=== PATIENT | female | born 1960 | race Caucasian/White ===

== ENCOUNTER 2017-01-29 17:59 | Emergency (ER) | payer OTHER ==
[~2017-01-29] VITALS: Ht 168.9 cm; Wt 127.3 kg
[~2017-01-29 17:59] MED LIST: CYCL10TA9 PO; ESTR1TAB24 PO; HYDR25TA4 PO; LEVO137T2 PO; LIP40 PO; LISI-567 PO; PREG225C PO
[2017-01-29 18:02] VITALS: BP 155/82; PULSE 84; RESP 16; O2SAT 96
[2017-01-29 18:54] LABS: BASOPHILS % (AUTO) 0.5 % (0-3); EOSINOPHILS % (AUTO) 2.7 % (0-5); MONOCYTES % (AUTO) 8.5 % (4-12); Mean Corpuscular Hemoglobin 30.8 pg (27.0-35.0); Mean Corpuscular Volume 91.8 fL (81-100); Platelet Count 278 bil/L (150-400)
--- NOTE | 2017-01-29 19:13 | DRSVH ---
PROCEDURE: X-RAY CHEST ONE VIEW, PORTABLE ([id number]) INDICATIONS: 56 year-old female with dyspnea for 6 months. TECHNIQUE: One view of the chest was acquired. COMPARISON: None. FINDINGS: Surgical changes and devices: None. Lungs and pleura: No pleural effusions or pneumothorax. Lungs are clear. Mediastinum: Mediastinal contours appear normal. Heart size is normal. Bones and chest wall: No suspicious bony lesions. Overlying soft tissues appear unremarkable. IMPRESSION: No acute cardiopulmonary disease. Dictated by: Aris Yoon M.D. on 01/29/2017 at 19:06 Approved by: Aris Yoon M.D. on 01/29/2017 at 19:07
[2017-01-29 19:21] LABS: TROPONIN T < 0.010 ug/L (0.0-0.011)
--- NOTE | 2017-01-29 20:17 | ED.REPORT ---
HPI-General Illness Date of Service Jan 29, 2017 ED Provider: Rmo Chilel Patient is a 56 year old female who presents to the ED complaining of R leg pain onset last night. Associated symptoms include R leg swelling, productive cough with green sputum (onset 2 mo ago), and SOB with exertion. She denies fever, numbness, weakness, or any other symptoms. She just finished a [address] from [place] last night. She had similar symptoms previously but has never had a DVT. She is on hormone replacement (1 mg estradiol). Nursing Notes Stated Complaint: RIGHT LEG PAIN, SHORTNESS OF BREATH/SENT FROM [facility] Chief Complaint: Respiratory Distress Nursing Notes Reviewed: Yes Allergies: Coded Allergies: Sulfa (Sulfonamide Antibiotics) (Verified Allergy, Severe, hives, 01/29/17) adhesive (Verified Allergy, Unknown, 01/29/17) latex (Verified Allergy, Unknown, 01/29/17) oxycodone (Verified Allergy, Unknown, 01/29/17) silicone (Verified Allergy, Unknown, 01/29/17) Scheduled Atorvastatin (Lipitor) 40 Mg Tablet 40 MG PO DAILY Estradiol (Estradiol) 1 Mg Tablet 1 MG PO DAILY Hydrochlorothiazide (Hydrochlorothiazide) 25 Mg Tablet 25 MG PO DAILY Levothyroxine (Levothyroxine) 137 Mcg Tablet 137 MCG PO DAILY Lisinopril (Lisinopril) 20 Mg Tablet 10 MG PO DAILY Pregabalin (Lyrica) 225 Mg Capsule 225 MG PO BID Scheduled PRN Cyclobenzaprine (Cyclobenzaprine) 10 Mg Tablet 10 MG PO BID PRN PRN Spasm General Time Seen by MD: 18:57 Chief Complaint Other (R leg pain ) Hx Obtained From: Patient, Spouse Arrived By: Walk-in Sudden in Onset?: Yes Onset Occurred: Yesterday Symptom Duration: Since onset Past Medical History Past Medical History Restless leg syndrome Reports: Hypertension Past Surgical History Reports: Hysterectomy Reports: Tubal ligation Smoking History Never Smoker Social History Sister passed 11/2016 Mother passed 11/22 Other Social History: Good social support, Ambulatory Status Independent Review of Systems Full Review of Systems Constitutional: Denies: Fever Respiratory: Reports: Dyspnea on exertion, Prod cough, green Musculoskeletal: Reports: Extremity pain (R leg pain > L ), Extremity swelling (R leg > L ) Neurologic: Denies: Numbness, Weakness Complete sys rev & neg: except as marked. Physical Exam Vital Signs Vital Signs Date Time Temp Pulse Resp B/P Pulse Ox O2 Delivery O2 Flow Rate FiO2 01/29/17 22:05 82 16 142/65 96 Room Air 01/29/17 20:30 82 19 139/51 96 Room Air 01/29/17 18:02 36.2 84 16 155/82 96 Room Air Initial VS: Reviewed General/Constitutional: Well-developed, Well-nourished Head / Eyes: Atraumatic, Normocephalic Neck: Full range of motion Abdomen / GI: Soft, Non-tender Skin: Warm, Dry Neurologic: Alert, Oriented, Nonfocal Psychiatric: Mood/affect normal, Behavior normal, Normal thought content Respiratory / Chest: Breath sounds NL, Breath sounds = bilat, No respiratory distress Cardiovascular: Heart rate NL, Regular rhythm, Heart sounds NL, No gallop, No murmurs, No rubs Lower Extremity / Pelvis / MS: Neurologic intact, Vascular intact Right Leg / Calf: Positive: Swelling present... (Mild) R leg swelling > L Pedal pulses intact Interpretation & Diagnostics Lab Results Interpretation Result Diagram: 01/29/17 1845 01/29/17 1845 Test 01/29/17 18:35 01/29/17 18:45 Hold Urine Received (Received) White Blood Count 8.3th/mm3 (3.8-10.1) Red Blood Count 4.03mil/mm3 (3.90-5.20) Hemoglobin 12.4g/dL (12.0-15.6) Hematocrit 37.0% (35.0-46.0) Mean Corpuscular Volume 91.8fL (81-100) Mean Corpuscular Hemoglobin 30.8pg (27.0-35.0) Mean Corpuscular Hemoglobin Concent 33.5% (32.0-37.0) Red Cell Distribution Width 14.9% (12.3-15.4) Platelet Count 278bil/L (150-400) Neutrophils (%) (Auto) 58.0% (40-74) Lymphocytes (%) (Auto) 30.1% (14-46) Monocytes (%) (Auto) 8.5% (4-12) Eosinophils (%) (Auto) 2.7% (0-5) Basophils (%) (Auto) 0.5% (0-3) D-Dimer 0.87mg/L FEU (<0.50) Sodium Level 139mEq/L (134-144) Potassium Level 3.4mEq/L (3.5-5.2) Chloride Level 99mEq/L (97-108) Carbon Dioxide Level 22mmol/L (18-29) Blood Urea Nitrogen 16mg/dL (6-24) Creatinine 0.86mg/dL (0.57-1.00) Estimat Glomerular Filtration Rate 98mL/min (>59) Glucose Level 104mg/dL (60-99) Calcium Level 9.7mg/dL (8.5-10.1) Magnesium Level 2.0mg/dL (1.6-2.6) Total Bilirubin 0.5mg/dL (0.0-1.2) Aspartate Amino Transf (AST/SGOT) 21U/L (0-50) Alanine Aminotransferase (ALT/SGPT) 22U/L (0-32) Alkaline Phosphatase 87U/L (25-150) Troponin T < 0.010ug/L (0.0-0.011) Pro-B-Type Natriuretic Peptide 44.83pg/mL (0-287) Total Protein 7.4g/dL (6.4-8.4) Albumin 4.0g/dL (3.4-5.0) ECG Interpretation ECG Interpretation: Sinus rate 79 Inferior infarct, old Time: 19:17 Interpreted by: ED physician X-Ray Chest Interpretation Chest Xray Interpretation: IMPRESSION: No acute cardiopulmonary disease. Dictated by: Aris Yoon M.D. on 01/29/2017 at 19:06 Approved by: Arsi Yoon M.D. on 01/29/2017 at 19:07 View: Portable, 1 view Interpretation / Wet Read by: Interpret - Radiologist CT Chest Interpretation IMPRESSION: No evidence for central pulmonary embolism. No acute pulmonary disease. Dictated by: Aris Yoon M.D. on 01/29/2017 at 20:54 Approved by: Aris Yoon M.D. on 01/29/2017 at 20:59 Study type: CT pulm angiogram Interpretation / Wet Read by: Interpret - Radiologist US Focused Lower Ext Venous IMPRESSION: No sonographic evidence for lower extremity deep venous thrombosis. Dictated by: Aris Yoon M.D. on 01/29/2017 at 21:22 Approved by: Aris Yoon M.D. on 01/29/2017 at 21:23 Exam Performed by: [facility] Exam Type: Diagnostic Exam Interpreted by: Radiologist Indication: Leg pain right, Leg pain left, Leg swelling right Interpretation: No evid deep vein thromb Re-Eval/Medical Decision Time of Eval: 21:48 Re-Evaluation/Progress Note: Discussed imaging results. Discussed plan for discharge. Patient understands and agrees with plan. All questions addressed at this time. Counseled Regarding: Diagnosis, Lab results, Need for follow-up, When/why to return to ED Discharge & Departure Primary Impression: Swelling of right lower extremity Disposition: Home Discharge Condition All VS Reviewed: Yes Condition: Improved Additional Instructions: Thank you for entrusting us with your care. We did not find a dangerous cause for your leg pain. Elevate your legs above your heart with your knees bent. Wear compression socks to help with the swelling. Follow up with your primary care physician within the next few days, if symptoms persist you may need a repeat ultrasound. Return to the emergency department if you experience any new or worsening symptoms. Continue previous home medications. Referrals: Meg Deluna MD (PCP) Scribe Attestation Portions of this note were transcribed by Love Desai. I, Dr. Chilel personally performed the history, physical exam and medical decision-making; I reviewed and confirmed the accuracy of the information in the transcribed note. Signed by: Love Desai 01/29/2017, [id number] copies to: Meg Deluna MD, Donald L MD Jan 29, 2017 20:17 LOVE DESAI Jan 29, 2017 20:27
[2017-01-29 20:30] VITALS: BP 139/51; PULSE 82; RESP 19; O2SAT 96
--- NOTE | 2017-01-29 21:06 | DRSVH ---
PROCEDURE: CT ANGIO CHEST PULMONARY EMBOLISM ([id number]) INDICATIONS: 56 year-old female with leg swelling and dyspnea, with elevated d-dimer. TECHNIQUE: After the administration of intravenous contrast, 2 mm thick sections acquired from the pulmonary api eder to the posterior costophrenic angles. 3-dimensional maximum intensity projection (MIP) coronal a nd sagittal reformats were then acquired through the thorax. For radiation dose reduction, the follo wing was used: automated exposure control, adjustment of mA and/or kV according to patient size. COMPARISON: [facility], CR, XR CHEST 1VW (PORTABLE), 01/29/2017, 18:41. FINDINGS: Image quality: Excellent. Pulmonary arteries: Pulmonary arteries are normal in size, and demonstrate no intraluminal filling d efects to suggest central pulmonary embolism. Lungs and pleura: Lungs are clear, except for patchy posterior right lung atelectasis or scarring. No pleural effusions or pneumothorax. Central and peripheral airways are patent. Mediastinum: Heart size is mildly enlarged, without pericardial effusion. No mediastinal or hilar a denopathy. Thoracic aorta is normal in caliber and enhancement. Esophagus is normal in caliber, wit hout hiatal hernia. Bones and chest wall: No suspicious bony lesions. Ribs and thoracic spine appear intact throughout. No axillary or supraclavicular adenopathy. Abdomen: Visualized upper abdominal solid organs appear normal in the early arterial phase of enhanc ement. IMPRESSION: No evidence for central pulmonary embolism. No acute pulmonary disease. Dictated by: Aris Yoon M.D. on 01/29/2017 at 20:54 Approved by: Aris Yoon M.D. on 01/29/2017 at 20:59
--- NOTE | 2017-01-29 21:30 | DRSVH ---
PROCEDURE: US VENOUS LEG DUPLEX BILATERAL INDICATIONS: 56 year-old female with leg swelling and elevated d-dimer level. TECHNIQUE: Real-time imaging, as well as color and pulse Doppler interrogation, were performed of the deep veins of both legs from the inguinal ligament to the popliteal fossa. COMPARISON: None. FINDINGS: The deep veins are normally compressible, and free of intraluminal thrombus. Color and pu lse Doppler demonstrate normal phasic intravascular flow. There is normal augmentation response to d istal compression maneuver. IMPRESSION: No sonographic evidence for lower extremity deep venous thrombosis. Dictated by: Aris Yoon M.D. on 01/29/2017 at 21:22 Approved by: Aris Yoon M.D. on 01/29/2017 at 21:23
[2017-01-29 22:05] VITALS: BP 142/65; PULSE 82; RESP 16; O2SAT 96
== END 2017-01-29 22:06 | disposition home or self-care (01) ==
LOC: SED 17:59
DX: M79.89 Other specified soft tissue disorders (principal); I10 Essential (primary) hypertension; Z88.2 Allergy status to sulfonamides; Z88.5 Allergy status to narcotic agent; Z91.040 Latex allergy status; Z79.899 Other long term (current) drug therapy; Z90.710 Acquired absence of both cervix and uterus
CPT/HCPCS: 36415; 71010; 71275; 80053; 83735; 83880; 84484; 85025; 85378; 93005; 93970; 99285; Q9967

== ENCOUNTER 2017-06-17 10:10 | Emergency (ER) | payer OTHER ==
[~2017-06-17] VITALS: Ht 167.6 cm; Wt 130.0 kg
[2017-06-17 10:14] VITALS: BP 169/83; PULSE 67; RESP 16; O2SAT 97
--- NOTE | 2017-06-17 10:55 | ED.REPORT ---
HPI-Dyspnea / Wheezing Date of Service Jun 17, 2017 ED Provider: Doc,Ed MD Patient is a 57 year old female with a hx of HTN who presents to the ED from her eye doctor s/p being found to be hypertensive around 200/90. Pt complains of associated dyspnea on exertion for approximately 8 mo, leg swelling, and headache with bending over. She denies chest pain, cough, fevers, chills, or any other symptoms. She takes furosemide daily. Nursing Notes Stated Complaint: SHORTNESS OF BREATH/HIGH BLOOD PRESSURE Chief Complaint: Respiratory Complaints Nursing Notes Reviewed: Yes Allergies: Coded Allergies: Sulfa (Sulfonamide Antibiotics) (Verified Allergy, Severe, hives, 06/17/17) adhesive (Verified Allergy, Unknown, 06/17/17) latex (Verified Allergy, Unknown, 06/17/17) oxycodone (Verified Allergy, Unknown, 06/17/17) silicone (Verified Allergy, Unknown, 06/17/17) Scheduled Atorvastatin (Lipitor) 40 Mg Tablet 40 MG PO DAILY Estradiol (Estradiol) 1 Mg Tablet 1 MG PO DAILY Furosemide (Lasix) 40 Mg Tablet 40 MG PO DAILY Hydrochlorothiazide (Hydrochlorothiazide) 25 Mg Tablet 25 MG PO DAILY Levothyroxine (Levothyroxine) 137 Mcg Tablet 137 MCG PO DAILY Lisinopril (Lisinopril) 20 Mg Tablet 10 MG PO DAILY Pregabalin (Lyrica) 225 Mg Capsule 225 MG PO BID Scheduled PRN Cyclobenzaprine (Cyclobenzaprine) 10 Mg Tablet 10 MG PO BID PRN PRN Spasm General Time Seen by MD: 10:55 Chief Complaint Shortness of breath Hx Obtained From: Patient, Spouse Arrived By: Walk-in Sudden in Onset?: No Onset Occurred: More than a week ago... (>6 months) Symptom Duration: Since onset Severity: Current: No pain currently Severity: Maximum: No pain Recent Healthcare: Recent doctor visit Past Medical History Past Medical History Restless leg syndrome chronic back pain fibromyalgia GERD Reports: Hypertension Past Surgical History Reports: Cataract surgery (x2), Hysterectomy Reports: Tubal ligation Family History Father massive [place] at 50 yrs old Smoking History Never Smoker Social History Sister passed 11/2016 Mother passed 11/22 Other Social History: Good social support, Ambulatory Status Independent Review of Systems Constitutional: Denies: Chills, Fever Respiratory: Reports: Dyspnea on exertion, Denies: Non-productive cough Cardiovascular: Denies: Chest pain Musculoskeletal: Reports: Extremity swelling Complete sys rev & neg: except as marked. Neurologic: Reports: Headache Physical Exam Initial Vital Signs Vital Signs (First) Date Time Temp Pulse Resp B/P Pulse Ox O2 Delivery O2 Flow Rate FiO2 06/17/17 10:14 36.4 67 16 169/83 97 Room Air Initial VS: Reviewed, Vital signs abnormal Head / Eyes: Atraumatic, Normocephalic Skin: Warm, Dry Neurologic: Alert, Oriented, Nonfocal Psychiatric: Mood/affect normal, Behavior normal, Normal thought content General/Constitutional: Awake, Alert, No acute distress Appearance / Presentation: Positive: Obese, morbidly Neck: Atraumatic, Full range of motion Respiratory / Chest: Atraumatic, Breath sounds NL, Breath sounds = bilat, No respiratory distress Cardiovascular: Heart rate NL, Regular rhythm, Heart sounds NL Lower Extremity / Pelvis / MS: No deformity Bilat LE edema Interpretation & Diagnostics Lab Results Interpretation Result Diagram: 06/17/17 1155 06/17/17 1155 Test 06/17/17 11:05 06/17/17 11:55 Hold Urine Received (Received) White Blood Count 7.0th/mm3 (3.8-10.1) Red Blood Count 4.20mil/mm3 (3.90-5.20) Hemoglobin 12.8g/dL (12.0-15.6) Hematocrit 37.7% (35.0-46.0) Mean Corpuscular Volume 89.8fL (81-100) Mean Corpuscular Hemoglobin 30.5pg (27.0-35.0) Mean Corpuscular Hemoglobin Concent 34.0% (32.0-37.0) Red Cell Distribution Width 13.7% (12.3-15.4) Platelet Count 251bil/L (150-400) Neutrophils (%) (Auto) 65.1% (40-74) Lymphocytes (%) (Auto) 25.1% (14-46) Monocytes (%) (Auto) 8.0% (4-12) Eosinophils (%) (Auto) 1.3% (0-5) Basophils (%) (Auto) 0.4% (0-3) D-Dimer < 0.50mg/L FEU (<0.50) Sodium Level 143mEq/L (134-144) Potassium Level 3.6mEq/L (3.5-5.2) Chloride Level 104mEq/L (97-108) Carbon Dioxide Level 24mmol/L (18-29) Blood Urea Nitrogen 12mg/dL (6-24) Creatinine 0.79mg/dL (0.57-1.00) Estimat Glomerular Filtration Rate 107mL/min (>59) Glucose Level 95mg/dL (60-99) Calcium Level 9.2mg/dL (8.5-10.1) Magnesium Level 2.1mg/dL (1.6-2.6) Total Bilirubin 0.6mg/dL (0.0-1.2) Aspartate Amino Transf (AST/SGOT) 27U/L (0-50) Alanine Aminotransferase (ALT/SGPT) 32U/L (0-32) Alkaline Phosphatase 92U/L (25-150) Troponin T 0.010ug/L (0.0-0.011) Pro-B-Type Natriuretic Peptide 358.3pg/mL (0-287) Total Protein 7.1g/dL (6.4-8.4) Albumin 4.0g/dL (3.4-5.0) ECG Interpretation ECG Interpretation: Sinus rate 64 Low voltage, precordial leads Probable LVH Time: 11:28 Interpreted by: ED physician X-Ray Chest Interpretation Chest Xray Interpretation: IMPRESSION: No acute disease Dictated by: Russ Julien M.D. on 06/17/2017 at 11:01 Approved by: Russ Julien M.D. on 06/17/2017 at 11:05 View: AP & lat Interpretation / Wet Read by: Interpret - Radiologist Re-Eval/Medical Decision Med Decision/Clinical Course Dyspnea for approximately 9 months, clinical history, workup in the ER is largely reassuring, her pro BNP is mildly elevated however chest x-ray is clear she is ambulatory, not hypoxic or tachycardic. Her blood pressure has come down appropriately. As discussed with the primary care doctor who agrees to help secure outpatient echocardiogram and follow-up. Will double the dose of furosemide and discharge. Return and follow-up precautions given. Re-Evaluation/Progress : Time of Eval: 13:29 )( Re-Eval Resp / Chest: Breath sounds normal Re-Evaluation/Progress Note: Discussed plan for discharge. Patient understands and agrees with plan. All questions addressed at this time. Consultation : Referral / Consult Name: Meg Deluna MD Consulted With: Primary care physician Call Returned at: 13:22 Aco Coordinator: Agrees with plan Note: Discussed pt's case. Increase lasix and will order outpatient echo. will f/u. Counseled Regarding: Diagnosis, Lab results, Need for follow-up, When/why to return to ED Discharge & Departure Impression: Primary Impression: Hypertension Hypertension type: unspecified secondary hypertension Qualified Code: I15.9 - Secondary hypertension, unspecified Additional Impression: Dyspnea Dyspnea type: dyspnea on exertion Qualified Code: R06.09 - Other forms of dyspnea Disposition: Home Discharge Condition All VS Reviewed: Yes Condition: Stable Patient Instructions: Dyspnea (ED) Additional Instructions: Your workup while in the emergency department is reassuring. Increase your Lasix to 40mg daily in order to decrease your blood pressure and help with lower extremity swelling. Today we spoke with your primary care doctor who has agreed to help sort this out for you and will order an echo to be done soon. Call your doctor's office today for close follow-up. Return to the ER as needed for persistent shortness of breath, chest pain, syncope, or any other concerns. Referrals: Meg Deluna MD (PCP) Scribe Attestation Portions of this note were transcribed by Love Desai. I, Dr. Huston personally performed the history, physical exam and medical decision-making; I reviewed and confirmed the accuracy of the information in the transcribed note. Signed by: Babak Caraballo, 06/17/17 copies to: Meg Deluna MD, Timothy S DO Jun 17, 2017 10:55 LOVE DESAI Jun 17, 2017 11:27
[2017-06-17 11:18] VITALS: BP 155/72; PULSE 67; RESP 17; O2SAT 97
[2017-06-17] MEDS ORDERED: Furosemide 10 mg/mL 2 mL Inj IVPUSH ONE (11:25)
[2017-06-17 12:07] LABS: BASOPHILS % (AUTO) 0.4 % (0-3); EOSINOPHILS % (AUTO) 1.3 % (0-5); Mean Corpuscular Hemoglobin 30.5 pg (27.0-35.0); Mean Corpuscular Volume 89.8 fL (81-100); NEUTROPHILS % (AUTO) 65.1 % (40-74); Platelet Count 251 bil/L (150-400)
--- NOTE | 2017-06-17 12:07 | DRSVH ---
PROCEDURE: X-RAY CHEST, TWO VIEWS ([id number]) INDICATIONS: dyspnea TECHNIQUE: 2 views of the chest were acquired. COMPARISON: [facility], CR, XR CHEST 1VW (PORTABLE), 01/29/2017, 18:41. FINDINGS: Surgical changes and devices: None. Lungs and pleura: No pleural effusions or pneumothorax. Lungs are clear. Mediastinum: Mediastinal contours are normal. Heart size is normal. Bones and chest wall: No suspicious bony abnormalities. Soft tissues appear unremarkable. IMPRESSION: No acute disease Dictated by: Russ Julien M.D. on 06/17/2017 at 11:01 Approved by: Russ Julien M.D. on 06/17/2017 at 11:05
[2017-06-17 12:43] LABS: TROPONIN T 0.01 ug/L (0.0-0.011)
[2017-06-17 12:54] LABS: Magnesium 2.1 mg/dL (1.6-2.6)
[2017-06-17] MEDS ORDERED: FURO-128 PO (13:26)
[2017-06-17 13:39] VITALS: BP 146/59; PULSE 61; RESP 16; O2SAT 97
== END 2017-06-17 13:38 | disposition home or self-care (01) ==
LOC: SED 10:10
DX: I15.9 Secondary hypertension, unspecified (principal); R06.09 Other forms of dyspnea; M79.89 Other specified soft tissue disorders; R51 Headache; K21.9 Gastro-esophageal reflux disease without esophagitis; M79.7 Fibromyalgia; Z90.710 Acquired absence of both cervix and uterus; Z88.2 Allergy status to sulfonamides; Z88.5 Allergy status to narcotic agent; Z88.8 Allergy status to other drugs, medicaments and biological substances; Z91.040 Latex allergy status; Z91.048 Other nonmedicinal substance allergy status
CPT/HCPCS: 36415; 71020; 80053; 83735; 83880; 84484; 85025; 85378; 93005; 96374; 99285; J1940